=== PATIENT | female | born 1985 | race Caucasian/White ===

== ENCOUNTER 2019-03-23 16:42 | Emergency (ER) | payer MEDICAID ==
[~2019-03-23] VITALS: Ht 170.2 cm; Wt 79.4 kg
[~2019-03-23 16:42] MED LIST: PRO125RS; SERT25TA84
[2019-03-23] MEDS ORDERED: IBUPROFEN 800 MG TAB PO ONE (19:15)
[2019-03-23] MEDS ORDERED: ACETAMINOPHEN 500 MG TAB PO ONE (19:15)
[2019-03-23 19:19] VITALS: BP 118/71
== END 2019-03-23 19:45 | disposition home or self-care (01) ==
LOC: ER 16:42
DX: S83.8X2A Sprain of other specified parts of left knee, initial encounter (principal); S09.90XA Unspecified injury of head, initial encounter; F17.210 Nicotine dependence, cigarettes, uncomplicated; Z79.899 Other long term (current) drug therapy; V49.49XA Driver injured in collision with other motor vehicles in traffic accident, initial encounter; Y93.89 Activity, other specified; Y99.8 Other external cause status; Y92.89 Other specified places as the place of occurrence of the external cause
CPT/HCPCS: 70450; 81025